=== PATIENT | female | born 1950 | race Caucasian/White ===

== ENCOUNTER 2017-03-31 05:58 | Day surgery (SDC) | payer MEDICARE, OTHER ==
[~2017-03-31] VITALS: Ht 149.9 cm; Wt 71.4 kg
[~2017-03-31 05:58] MED LIST: 0.9% SODIUM CHLORIDE 10 ML VIAL IVP ONE; CeFAZolin 2 GM/DEXTROSE 50 ML IV ONE; EPHEDrine SULFATE 50 MG/ML VIAL IM ONE; FentaNYL CITRATE-PF 100 MCG/2 ML VIAL IVP ONE; GLYCOPYRROLATE 0.2 MG/ML VIAL IM ONE; LIDOCAINE HCL/PF 2% 5 ML VIAL IM ONE; MIDAZOLAM HCL 2 MG/2 ML VIAL IVP ONE; ONDANSETRON HCL 4 MG/2 ML VIAL IVP ONE; PROPOFOL 1% 20 ML VIAL IVP ONE; RINGERS SOLUTION,LACTATED 1,000 ML IV ONE
[2017-03-31] MEDS ORDERED: CHOL200016 PO (06:31)
[2017-03-31] MEDS ORDERED: ATOR40TA28 PO (06:31)
[2017-03-31] MEDS ORDERED: SITA1TAB6 PO (06:31)
[2017-03-31] MEDS ORDERED: LIDOCAINE HCL/PF 2% 5 ML VIAL ONE (06:40)
[2017-03-31] MEDS ORDERED: BUPIVACAINE/EPI/PF 0.5% 30 ML VIAL ONE (06:40)
[2017-03-31] MEDS ORDERED: CeFAZolin 2 GM/DEXTROSE 50 ML IV ONE (07:00)
[2017-03-31 07:01] LABS: GLUCOSE,POINT OF CARE 122 MG/DL (70-110)
[2017-03-31] MEDS ORDERED: GUM MASTIC/STORAX/MSAL/ALCOHOL LIQUID 0.67 ML VIAL TP ONE (08:08)
[2017-03-31] MEDS ORDERED: FentaNYL CITRATE-PF 100 MCG/2 ML VIAL IVP PRN (08:30)
[2017-03-31] MEDS ORDERED: MEPERIDINE-PF 25 MG/ML SYRINGE IVP PRN (08:30)
[2017-03-31] MEDS: HYDROmorphone 2 MG/ML SYRINGE IVP PRN ×6 (08:40→09:41)
[2017-03-31] MEDS ORDERED: HYDROmorphone 2 MG/ML SYRINGE ONE (08:42)
[2017-03-31] MEDS ORDERED: MEPERIDINE-PF 25 MG/ML SYRINGE ONE (08:43)
[2017-03-31] MEDS ORDERED: ACETAMINOPHEN 500 MG TABLET PO PRN (08:45)
[2017-03-31] MEDS ORDERED: HYDROCODONE/ACETAMINOPHEN 5-325 MG TABLET PO PRN (08:45)
[2017-03-31] MEDS ORDERED: IBUPROFEN 600 MG TABLET PO PRN (08:45)
[2017-03-31] MEDS ORDERED: HYDROmorphone 2 MG/ML SYRINGE IVP ONE (09:40)
[2017-03-31] MEDS ORDERED: OXYGEN THERAPY IH SCH (20:00)
== END 2017-03-31 11:35 | disposition home or self-care (01) ==
LOC: SURGERY 05:58
PROVIDERS: ATTEND Surgery
DX: K40.30 Unilateral inguinal hernia, with obstruction, without gangrene, not specified as recurrent (principal); E11.9 Type 2 diabetes mellitus without complications; E78.5 Hyperlipidemia, unspecified; D64.9 Anemia, unspecified; I10 Essential (primary) hypertension; E66.9 Obesity, unspecified; Z98.890 Other specified postprocedural states; Z90.49 Acquired absence of other specified parts of digestive tract; Z85.3 Personal history of malignant neoplasm of breast
CPT/HCPCS: 49507; 82962; 88304; 93005; C1781; J0690; J1170; J2175; J2250; J2405; J2704; J3010; J3490 ×4; J7120